=== PATIENT | female | born 1975 | race African-American/Black ===

== ENCOUNTER 2017-11-23 00:39 | Emergency (ER) | payer MEDICAID ==
[~2017-11-23] VITALS: Ht 165.1 cm; Wt 74.0 kg
[2017-11-23] MEDS ORDERED: KETOROLAC 30MG/ML VIAL IV STA (01:17)
[2017-11-23 02:15] LABS: BASOPHILS % 1.4 % (0.0-2.0); EOSINOPHILS % 4.7 % (0.0-5.0); HEMATOCRIT. 32.3 % (36.0-48.0); MEAN CORPUSCULAR HEMOGLOBIN 21.2 pg (28.0-32.0); MEAN CORPUSCULAR VOLUME 68.4 fL (81.0-99.0); MEAN PLATELET VOLUME 7.7 fl (7.4-10.4); MONOCYTES % 7.6 % (2.0-8.0); NEUTROPHILS % 50.3 % (40.0-76.0); PLATELET 454 x1000/uL (130-400); RED BLOOD CELL COUNT 4.73 mill/uL (4.2-5.4); RED CELL DISTRIBUTION WIDTH 20.5 % (11.6-14.6)
[2017-11-23 02:19] LABS: INR 1.1; PROTHROMBIN TIME 11.5 sec (9.4-11.6)
[2017-11-23 02:22] LABS: CHLORIDE 107 mEq/L (98-107)
[2017-11-23 03:14] LABS: PLATELET ESTIMATE SLIGHTLY INCREASED
[2017-11-23 05:33] VITALS: BP 239/80
== END 2017-11-23 05:51 | disposition home or self-care (01) ==
LOC: ER 00:39 → CANBEDREQ 06:58
DX: Z76.5 Malingerer [conscious simulation] (principal); G89.29 Other chronic pain; F20.9 Schizophrenia, unspecified; E05.90 Thyrotoxicosis, unspecified without thyrotoxic crisis or storm; F17.200 Nicotine dependence, unspecified, uncomplicated; F12.90 Cannabis use, unspecified, uncomplicated; Z90.49 Acquired absence of other specified parts of digestive tract; Z98.84 Bariatric surgery status
CPT/HCPCS: 36415; 71045; 74176; 80053; 81025; 83690; 85025; 85610; 93005; 96374; 99285; J1885

== ENCOUNTER 2018-09-05 15:18 | Emergency (ER) | payer MEDICAID ==
[~2018-09-05] VITALS: Ht 167.6 cm; Wt 75.0 kg
[2018-09-05 15:23] VITALS: BP 135/68
== END 2018-09-05 16:55 | disposition left against medical advice (07) ==
LOC: ER 15:18
DX: Z53.21 Procedure and treatment not carried out due to patient leaving prior to being seen by health care provider (principal)

== ENCOUNTER 2023-11-18 17:54 | Emergency (ER) | payer MEDICAID ==
[~2023-11-18] VITALS: Ht 167.6 cm; Wt 55.0 kg
[2023-11-18 18:00] VITALS: O2SAT 100
[2023-11-18 18:25] VITALS: TEMP 97.7
[2023-11-18] MEDS: SODIUM CHLORIDE 0.9% 1,000 ML IV ONE (18:41)
[2023-11-18] MEDS: PANTOPRAZOLE SODIUM 40 MG/VIAL IV STA (18:47)
[2023-11-18 18:59] LABS: HEMATOCRIT. 31.3 % (36.0-48.0); HEMOGLOBIN. 9.2 g/dL (12.0-16.0); MEAN CORPUSCULAR HEMOGLOBIN 22.1 pg (28.0-32.0); MEAN CORPUSCULAR HGB CONC 29.5 g/dL (31.0-37.0); MEAN PLATELET VOLUME 8.5 fl (7.4-10.4); PLATELET 428 x1000/uL (130-400); RED BLOOD CELL COUNT 4.17 mill/uL (4.2-5.4); RED CELL DISTRIBUTION WIDTH 36.8 % (11.6-14.6); WHITE BLOOD COUNT 5.3 x1000/uL (4.5-11.0)
[2023-11-18 19:00] LABS: DIFFERENTIAL COMMENT 1
[2023-11-18 19:15] LABS: CARBON DIOXIDE 26 mEq/L (21-32); CHLORIDE 108 mEq/L (98-107); POTASSIUM 5.3 mEq/L (3.5-5.1); SODIUM 140 mEq/L (136-145)
[2023-11-18 19:16] LABS: CALCIUM 10.6 mg/dL (8.7-10.4)
[2023-11-18 19:21] LABS: CREATININE 0.6 mg/dL (0.6-1.0); GLUCOSE 70 mg/dL (70-105); TROPONIN I HIGH SENSITIVITY < 4 ng/L (3.0-34); UREA NITROGEN BLOOD 6 mg/dL (9-23)
[2023-11-18 19:22] LABS: ALANINE AMINOTRANSFERASE 23 IU/L (10-49); ALBUMIN 3.6 g/dL (3.2-4.8); ASPARTATE AMINOTRANSFERASE 37 IU/L (<34)
[2023-11-18 19:23] LABS: BILIRUBIN TOTAL 0.2 mg/dL (0.1-1.0)
[2023-11-18 19:27] LABS: HCG SCREEN NEGATIVE
[2023-11-18] MEDS: ONDANSETRON HCL 4MG/2ML INJ IV STA (19:54)
[2023-11-18] MEDS: MORPHINE SULFATE 4 MG/ML INJ (FOR IV/IM USE) IV STA (19:54)
[2023-11-18] MEDS: DIPHENHYDRAMINE 50MG/ML VIAL IV ONE (19:55)
[2023-11-18 19:56] LABS: ANISOCYTOSIS 3+; HYPOCHROMASIA 1+; MICROCYTOSIS 1+; PLATELET ESTIMATE INCREASED
[2023-11-18 20:15] LABS: PROTHROMBIN TIME 11.5 sec (9.6-11.0)
[2023-11-18] MEDS: SODIUM BICARBONATE 8.4% 1 MEQ/ML 50ML SYR IV ONE (20:59)
[2023-11-18 22:52] LABS: CLARITY URINE CLEAR (CLEAR); COLOR URINE YELLOW (YELLOW); GLUCOSE URINE NEGATIVE (NEGATIVE); KETONES URINE NEGATIVE (NEGATIVE); LEUKOCYTE ESTERASE URINE TRACE (NEGATIVE); NITRITE URINE NEGATIVE (NEGATIVE); OCCULT BLOOD URINE 3+ (NEGATIVE); PH URINE 7.5 (4.5-8.0); PROTEIN URINE NEGATIVE (NEGATIVE); SPECIFIC GRAVITY URINE 1.011 (1.005-1.030); UROBILINOGEN URINE 0.2 E.U./dL (0.2-1.0)
[2023-11-18 23:02] LABS: RBC URINE 15-25 /hpf (0-2)
[2023-11-18 23:03] LABS: BACTERIA URINE NONE SEEN; SQUAMOUS EPITHELIAL CELL URINE RARE /lpf (RARE/1+); WBC URINE 0-2 /hpf (0-2)
[2023-11-18] MEDS ORDERED: POLY17PO3 MT (23:18)
[2023-11-19 01:23] VITALS: BP 118/72; PULSE 72; RESP 16
== END 2023-11-19 01:23 | disposition home or self-care (01) ==
LOC: ER 17:54
DX: R10.84 Generalized abdominal pain (principal); R53.1 Weakness; M25.551 Pain in right hip; M25.511 Pain in right shoulder; F41.9 Anxiety disorder, unspecified; I95.9 Hypotension, unspecified; Z88.0 Allergy status to penicillin
CPT/HCPCS: 80053; 81003; 84703; 83690; 83735; 85025; 85610; 84484; 36415; 73502; 73552; 71045; 73030; 74176; 93005; 96374; 96375; 99285; J1200; J2405; J3490; J2270; J7030; Z7610 ×4; C9113

== ENCOUNTER 2023-12-09 02:54 | Emergency (ER) | payer MEDICAID ==
[~2023-12-09] VITALS: Ht 170.2 cm; Wt 57.0 kg
[~2023-12-09 02:54] MED LIST: POLY17PO3 MT; TOPUD PO
[2023-12-09 02:57] VITALS: BP 124/74; PULSE 55; RESP 12; O2SAT 100
[2023-12-09] MEDS: ACETAMINOPHEN 325MG TABLET PO ONE (06:03)
== END 2023-12-09 06:30 | disposition home or self-care (01) ==
LOC: ER 02:54
DX: M79.662 Pain in left lower leg (principal); Z88.0 Allergy status to penicillin; Z88.6 Allergy status to analgesic agent; Z88.5 Allergy status to narcotic agent; Z98.890 Other specified postprocedural states
CPT/HCPCS: 99282

== ENCOUNTER 2024-04-03 01:13 | Emergency (ER) | payer MEDICAID ==
[~2024-04-03] VITALS: Ht 170.2 cm; Wt 68.0 kg
[2024-04-03 01:15] VITALS: BP 123/72; PULSE 62; RESP 16; TEMP 98.2; O2SAT 100
[2024-04-03] MEDS ORDERED: HYDROCODONE/ACETAMINOPHEN 5/325MG TABLET PO ONE (01:45)
[2024-04-03] MEDS ORDERED: LIDO700A15 TP (03:08)
[2024-04-03] MEDS ORDERED: TOPUD MT (03:08)
[2024-04-03] MEDS: HYDROCODONE/ACETAMINOPHEN 5/325MG TABLET PO NR (03:55)
== END 2024-04-03 03:55 | disposition home or self-care (01) ==
LOC: ER 01:24
DX: G89.29 Other chronic pain (principal); M54.9 Dorsalgia, unspecified; F41.9 Anxiety disorder, unspecified; F19.90 Other psychoactive substance use, unspecified, uncomplicated; Z90.49 Acquired absence of other specified parts of digestive tract; Z88.0 Allergy status to penicillin; Z88.6 Allergy status to analgesic agent; Z88.5 Allergy status to narcotic agent; Z98.84 Bariatric surgery status; Z79.899 Other long term (current) drug therapy
CPT/HCPCS: 99283

== ENCOUNTER 2024-04-03 06:42 | Emergency (ER) | payer MEDICAID ==
[~2024-04-03] VITALS: Ht 165.1 cm; Wt 40.0 kg
[~2024-04-03 06:42] MED LIST changes: +LIDO700A15 TP; +TOPUD MT
[2024-04-03 06:43] VITALS: O2SAT 100
[2024-04-03 06:47] VITALS: BP 145/88; PULSE 95; RESP 20; TEMP 98.1; O2SAT 100
[2024-04-03] MEDS ORDERED: NAPROXEN 250MG TABLET PO NR (08:00)
[2024-04-03 08:28] LABS: BASOPHILS % 0.8 % (0.0-2.0); CARBON DIOXIDE 29 mEq/L (21-32); CHLORIDE 104 mEq/L (98-107); DIFFERENTIAL COMMENT 0; EOSINOPHILS % 2.2 % (0.0-5.0); HEMATOCRIT. 35.4 % (36.0-48.0); HEMOGLOBIN. 10.8 g/dL (12.0-16.0); LYMPHOCYTES % 30.2 % (20.0-50.0); MEAN CORPUSCULAR HEMOGLOBIN 24.2 pg (28.0-32.0); MEAN CORPUSCULAR HGB CONC 30.5 g/dL (31.0-37.0); MEAN CORPUSCULAR VOLUME 79.4 fL (81.0-99.0); MEAN PLATELET VOLUME 7.5 fl (7.4-10.4); MONOCYTES % 7.3 % (2.0-8.0); NEUTROPHILS % 59.5 % (40.0-76.0); PLATELET 369 x1000/uL (130-400); POTASSIUM 3.5 mEq/L (3.5-5.1); RED BLOOD CELL COUNT 4.46 mill/uL (4.2-5.4); RED CELL DISTRIBUTION WIDTH 20.5 % (11.6-14.6); SODIUM 137 mEq/L (136-145); WHITE BLOOD COUNT 6.4 x1000/uL (4.5-11.0)
[2024-04-03 08:29] LABS: CALCIUM 10.7 mg/dL (8.7-10.4)
[2024-04-03 08:34] LABS: CREATININE 0.7 mg/dL (0.6-1.0); GLUCOSE 88 mg/dL (70-105); UREA NITROGEN BLOOD 9 mg/dL (9-23)
[2024-04-03 08:35] LABS: ALANINE AMINOTRANSFERASE 12 IU/L (10-49)
[2024-04-03 08:36] LABS: ALBUMIN 4.2 g/dL (3.2-4.8); ASPARTATE AMINOTRANSFERASE 20 IU/L (<34); BILIRUBIN TOTAL 0.2 mg/dL (0.1-1.0); PROTEIN TOTAL 7.5 g/dL (6.0-8.3)
[2024-04-03 08:40] LABS: BILIRUBIN DIRECT < 0.1 mg/dL (<=3.0)
[2024-04-03] MEDS ORDERED: ACETAMINOPHEN 1000MG/100ML 100 ML IV ONE (09:15)
[2024-04-03 09:25] LABS: CLARITY URINE TURBID (CLEAR); COLOR URINE DARK YELLOW (YELLOW); GLUCOSE URINE NEGATIVE (NEGATIVE); KETONES URINE NEGATIVE (NEGATIVE); LEUKOCYTE ESTERASE URINE NEGATIVE (NEGATIVE); NITRITE URINE NEGATIVE (NEGATIVE); OCCULT BLOOD URINE NEGATIVE (NEGATIVE); PH URINE 5.5 (4.5-8.0); PROTEIN URINE 1+ (NEGATIVE); SPECIFIC GRAVITY URINE 1.032 (1.005-1.030)
[2024-04-03 09:44] LABS: BACTERIA URINE TRACE; RBC URINE 0-2 /hpf (0-2); SQUAMOUS EPITHELIAL CELL URINE 1+ /lpf (RARE/1+)
[2024-04-03 09:45] LABS: CALCIUM OXALATE CRYSTALS URINE 2+ /lpf; MUCUS URINE 2+ /lpf (< = 2+); YEAST URINE NONE SEEN
[2024-04-03 11:02] LABS: HCG SCREEN NEGATIVE
== END 2024-04-03 20:04 | disposition left against medical advice (07) ==
LOC: ER 06:42 → EDBEDREQTM 10:39 → EDBEDREQ 10:40 → ER 20:04
DX: M54.50 Low back pain, unspecified (principal); F41.9 Anxiety disorder, unspecified; I95.9 Hypotension, unspecified; Z88.0 Allergy status to penicillin; Z88.6 Allergy status to analgesic agent; Z88.5 Allergy status to narcotic agent; Z79.899 Other long term (current) drug therapy
CPT/HCPCS: 36415; 74176; 80048; 80076; 81003; 84703; 85025; 99284; J0131